=== PATIENT | male | born 1980 | race Caucasian/White ===

== ENCOUNTER 2018-05-25 07:50 | Emergency (ER) | payer OTHER ==
[~2018-05-25] VITALS: Ht 180.3 cm; Wt 113.6 kg
[2018-05-25 07:54] VITALS: Ht 180.3 cm; Wt 113.6 kg
[2018-05-25 08:26] LABS: BASOPHILS 0.3 % (0-2); EOSINOPHILS 1.1 % (0-7); HEMATOCRIT 44.7 % (42.0-54.0); HEMOGLOBIN 15.9 g/dL (13.5-17.5); IMMATURE GRANULOCYTES 0.7 % (0-5); LYMPHOCYTES 12.2 % (15-50); MCH 31.7 pg (26.0-34.0); MCHC 35.6 g/dL (31.0-37.0); MCV 89.2 fL (80.0-100.0); MEAN PLATELET VOLUME 9.3 fL (7.4-10.4); MONOCYTES 5.7 % (2-11); PLATELET COUNT 276 10x3/uL (130-400); RBC 5.01 10x6/uL (4.20-6.10); RDW 12.7 % (11.5-14.5); WBC 13.3 10x3/uL (4.8-10.8)
[2018-05-25 08:46] LABS: ALBUMIN 4.3 g/dL (3.4-5.0); ALKALINE PHOSPHATASE 91 U/L (46-116); ALT (SGPT) 58 U/L (10-68); AMYLASE - SERUM 51 U/L (25-115); BILIRUBIN - TOTAL 0.34 mg/dL (0.2-1.3); CALC OSMOLALITY 280 mosm/kg (275-300); CALCIUM 10.6 mg/dL (8.5-10.1); CARBON DIOXIDE 26.5 mmol/L (21.0-32.0); CHLORIDE - SERUM 102 mmol/L (98-107); CREATININE - SERUM 0.9 mg/dL (0.6-1.3); GLUCOSE 126 mg/dL (74-106); LIPASE 115 U/L (73-393); PROTEIN - SERUM 8.6 g/dL (6.4-8.2); SODIUM 139 mmol/L (136-145); UREA NITROGEN 14 mg/dL (7-18); eGFR NON AFRICAN AMERICAN > 90 mL/min (90-120)
[2018-05-25 08:47] LABS: COLOR YELLOW (YELLOW)
[2018-05-25 08:48] LABS: AMORPHOUS SEDIMENT >1+ /lpf (NONE SEEN); APPEARANCE CLOUDY (CLEAR); BACTERIA FEW /hpf (NONE SEEN); BILIRUBIN NEGATIVE (NEGATIVE); EPITHELIAL CELLS RARE /hpf (0-5); GLUCOSE NEGATIVE (NEGATIVE); KETONE SMALL mg/dL (NEGATIVE); MUCUS <1+ /lpf (NONE SEEN); NITRITE NEGATIVE (NEGATIVE); PROTEIN NEGATIVE (NEGATIVE); RED CELLS - URINE OCC /hpf (0-5); UROBILINOGEN NORMAL (NORMAL); WHITE CELLS - URINE RARE /hpf (0-5)
[2018-05-25] MEDS ORDERED: ZOFRAN ODT4 MG/UDTAB PO (09:18)
[2018-05-25] MEDS ORDERED: CIPRO250 MG PO (09:18)
[2018-05-25 10:14] VITALS: BP 169/90
== END 2018-05-25 10:16 | disposition home or self-care (01) ==
LOC: D.ER 07:50
PROVIDERS: Emergency Medicine
DX: R10.13 Epigastric pain (principal); R82.71 Bacteriuria; R11.10 Vomiting, unspecified; F17.200 Nicotine dependence, unspecified, uncomplicated